=== PATIENT | female | born 1955 | race Caucasian/White ===

== ENCOUNTER 2017-11-20 15:44 | Outpatient (CLI) | payer BC | END 2017-11-20 15:45 | disposition home or self-care (01) | LOC: BICMAMMO 15:44 | PROVIDERS: ATTEND Internal Medicine | DX: Z12.31 Encounter for screening mammogram for malignant neoplasm of breast (principal) | CPT/HCPCS: 77063; 77067 ==

== ENCOUNTER 2018-11-21 15:30 | Outpatient (CLI) | payer BC ==
--- NOTE | 2018-11-22 08:59 | MMO ---
Bilateral MAMMO Bilat Screen [facility]. CLINICAL HISTORY: Patient is 63 years old and is seen for screening. The patient has no family history of breast cancer. The patient has no personal history of cancer. VIEWS: The views performed were: bilateral craniocaudal with tomosynthesis and bilateral mediolateral oblique with tomosynthesis. FILMS COMPARED: The present examination has been compared to prior imaging studies performed at [facility] on 10/10/1997, 11/25/1999, 08/14/2002, 08/18/2003, 08/18/2004, 08/18/2005, 08/19/2005, 08/21/2006, 08/21/2007, 10/01/2008, 10/02/2009, 10/06/2011, 10/11/2012, 10/14/2013, 11/12/2014, 11/18/2014, 11/16/2015, 11/18/2016 and 11/20/2017. MAMMOGRAM FINDINGS: There are scattered fibroglandular densities. There are benign appearing calcifications seen in both breasts. There are no suspicious masses, calcifications or areas of architectural distortion. IMPRESSION: CALCIFICATIONS IN BOTH BREASTS ARE BENIGN. A ROUTINE FOLLOW-UP MAMMOGRAM IN 1 YEAR IS RECOMMENDED. THE RESULTS OF THIS EXAM WERE SENT TO THE PATIENT. ACR BI-RADS Category 2 - Benign finding MAMMOGRAPHY NOTE: 1. A negative mammogram report should not delay a biopsy if a dominant of clinically suspicious mass is present. 2. Approximately 10% to 15% of breast cancers are not detected by mammography. 3. Adenosis and dense breasts may obscure an underlying neoplasm.
== END 2018-11-21 15:31 | disposition home or self-care (01) ==
LOC: BICMAMMO 15:30
PROVIDERS: ATTEND Internal Medicine
DX: Z12.31 Encounter for screening mammogram for malignant neoplasm of breast (principal); R92.1 Mammographic calcification found on diagnostic imaging of breast
CPT/HCPCS: 77063; 77067

== ENCOUNTER 2018-11-22 14:13 | Outpatient (CLI) | payer BC ==
--- NOTE | 2018-11-22 15:33 | BD ---
DEXA BONE DENSITY STUDY: HISTORY: Postmenopausal. FINDINGS: Lumbar Spine: BMD (g/cm2) L1 0.845 T-Score: -1.3 L2 0.922 T-Score: -1.0 L3 0.912 T-Score: -1.6 L4 0.925 T-Score: -1.2 L1-L4 0.904 T-Score: -1.3 Femoral Neck: 0.669 T-Score: -1.6 Total Femur: 0.876 T-Score: -0.5 Impression: 1. Osteopenia of the left femoral neck and lumbar spine. 2. Ten-year fracture risk for a major osteoporotic fracture is 7.5% and of a hip fracture is 0.9%. These fracture probabilities are calculated for an untreated patient. POS: [facility]
== END 2018-11-22 14:14 | disposition home or self-care (01) ==
LOC: BICMAMMO 14:13
PROVIDERS: ATTEND Internal Medicine
DX: Z13.820 Encounter for screening for osteoporosis (principal); M85.89 Other specified disorders of bone density and structure, multiple sites
CPT/HCPCS: 77080

== ENCOUNTER 2019-11-25 14:56 | Outpatient (CLI) | payer BC ==
--- NOTE | 2019-11-25 15:52 | MMO ---
Bilateral MAMMO Bilat Screen [facility]. CLINICAL HISTORY: Patient is 64 years old and is seen for screening. The patient has no family history of breast cancer. The patient has no personal history of cancer. VIEWS: The views performed were: bilateral craniocaudal with tomosynthesis and bilateral mediolateral oblique with tomosynthesis. FILMS COMPARED: The present examination has been compared to prior imaging studies performed at [facility] on 11/18/2016, 11/20/2017 and 11/21/2018. This study has been interpreted with the assistance of computer-aided detection. MAMMOGRAM FINDINGS: There are scattered fibroglandular densities. Finding 1: There are stable benign appearing calcifications seen in both breasts. Finding 2: There are several stable focal asymmetries seen in both breasts. There are no suspicious masses, suspicious calcifications, or new areas of architectural distortion. IMPRESSION: THERE IS NO MAMMOGRAPHIC EVIDENCE OF MALIGNANCY. A ROUTINE FOLLOW-UP MAMMOGRAM IN 1 YEAR IS RECOMMENDED. THE RESULTS OF THIS EXAM WERE SENT TO THE PATIENT. ACR BI-RADS Category 2 - Benign finding MAMMOGRAPHY NOTE: 1. A negative mammogram report should not delay a biopsy if a dominant of clinically suspicious mass is present. 2. Approximately 10% to 15% of breast cancers are not detected by mammography. 3. Adenosis and dense breasts may obscure an underlying neoplasm. Reported by: AUNDREA TRINIDAD MD Electonically Signed: [id number]
== END 2019-11-25 14:57 | disposition home or self-care (01) ==
LOC: BICMAMMO 14:56
PROVIDERS: ATTEND Internal Medicine
DX: Z12.31 Encounter for screening mammogram for malignant neoplasm of breast (principal)
CPT/HCPCS: 77063; 77067

== ENCOUNTER 2020-12-14 08:52 | Outpatient (CLI) | payer BC, MEDICARE | END 2020-12-14 08:53 | disposition home or self-care (01) | LOC: BICMAMMO 08:52 | PROVIDERS: ATTEND Family Medicine | DX: Z12.31 Encounter for screening mammogram for malignant neoplasm of breast (principal) | CPT/HCPCS: 77063; 77067 ==

== ENCOUNTER 2023-03-01 12:26 | Outpatient (CLI) | payer MEDICARE, BC | END 2023-03-01 12:27 | disposition home or self-care (01) | LOC: BICMAMMO 12:26 | PROVIDERS: ATTEND Student in an Organized Health Care Education/Training Program | DX: Z12.31 Encounter for screening mammogram for malignant neoplasm of breast (principal); Z78.0 Asymptomatic menopausal state; M85.80 Other specified disorders of bone density and structure, unspecified site | CPT/HCPCS: 77063; 77067; 77080 ==

== ENCOUNTER 2024-03-04 13:45 | Outpatient (CLI) | payer MEDICARE, BC | END 2024-03-04 13:46 | disposition home or self-care (01) | LOC: BICMAMMO 13:45 | PROVIDERS: ATTEND Student in an Organized Health Care Education/Training Program | DX: Z12.31 Encounter for screening mammogram for malignant neoplasm of breast (principal) | CPT/HCPCS: 77063; 77067 ==